=== PATIENT | female | born 1980 | race Caucasian/White ===

== ENCOUNTER 2024-08-27 12:46 | Day surgery (SDC) | payer OTHER ==
[2024-08-27] MEDS ORDERED: Sodium Chloride 0.9(Preservative Free) 10 ML IJ ONE (12:47)
[2024-08-27] MEDS ORDERED: Decadron 4 MG INJ IV ONE (12:47)
[2024-08-27] MEDS ORDERED: DIPRIVAN 200 MG/20 ML IV ONE (14:33)
--- NOTE | 2024-08-27 16:55 | XRAY ---
Indication: Right L4-S1 transforaminal MENDOZA. Intraoperative fluoroscopy provided for 32 seconds. 5 digital spot image submitted for interpretation demonstrates posterior needle tips projecting over the expected right L4 and L5 nerve roots. Small amount of contrast injected for needle tip placement. Correlate with intraoperative findings/report.
--- NOTE | 2024-08-27 17:05 | XRAY ---
32 seconds of fluoroscopy was used in surgery for a right L4-S1 transforaminal MENDOZA.
== END 2024-08-27 15:00 | disposition home or self-care (01) ==
LOC: SDC-PAIN 12:46
PROVIDERS: ATTEND Psychiatry & Neurology Pain Medicine
DX: M54.16 Radiculopathy, lumbar region (principal)
CPT/HCPCS: 72100; 77003; J1100; J2704

== ENCOUNTER 2025-07-08 08:51 | Day surgery (SDC) | payer OTHER ==
[2025-07-08] MEDS ORDERED: Sodium Chloride 0.9(Preservative Free) 10 ML IJ ONE (08:52)
[2025-07-08] MEDS ORDERED: propofoL IV ONE ×2 (10:24→10:39)
[2025-07-08] MEDS ORDERED: Lactated Ringers 1,000 ML IV ONE (11:01)
--- NOTE | 2025-07-08 12:30 | XRAY ---
Indication: Right L4-S1 transforaminal MENDOZA. Intraoperative fluoroscopy provided for 49 seconds. 7 digital spot image submitted for interpretation demonstrates posterior needle tips projecting over expected right L4 and L5 nerve roots. Small amount of contrast injected for needle tip placement. Correlate with intraoperative findings/report.
--- NOTE | 2025-07-08 12:53 | XRAY ---
49 seconds of fluoroscopy was used in surgery for a right L4-S1 transforaminal MENDOZA.
== END 2025-07-08 11:13 | disposition home or self-care (01) ==
LOC: SDC-PAIN 08:51
PROVIDERS: ATTEND Psychiatry & Neurology Pain Medicine
DX: M54.16 Radiculopathy, lumbar region (principal); E11.9 Type 2 diabetes mellitus without complications